=== PATIENT | male | born 1990 | race Caucasian/White ===

== ENCOUNTER 2017-03-11 04:09 | Emergency (ER) | payer OTHER ==
[~2017-03-11] VITALS: Wt 92.0 kg
[2017-03-11] MEDS ORDERED: LIDOCAINE 1% (MDV) 10 ML INJ INJ STA (04:25)
[2017-03-11] MEDS ORDERED: DIPHTH/TET/ACEL PERTUSS (ADULT) 0.5 ML VIAL IM ONE (04:30)
--- NOTE | 2017-03-11 04:50 | ERD ---
ER Documentation Chief Complaint Date/Time DATE: 03/11/17 TIME: 04:48 Chief Complaint Laceration Left arrington at 1230 in the afternoon. injured at work HPI 26-year-old male presents with left arrington laceration that occurred today. Patient accidentally cut himself because the glass fell onto his leg. He is ambulatory. Denies possibility retained foreign body. Pain is mild to moderate he was given, but he came because it would not stop bleeding. Unsure last tetanus vaccination. ROS All systems reviewed and are negative except as per history of present illness. Allergies Allergies: Coded Allergies: No Known Allergy (Unverified , 03/11/17) PMhx/Soc History of Surgery: No Anesthesia Reaction: No Hx Neurological Disorder: No Hx Respiratory Disorders: No Hx Cardiac Disorders: No Hx Psychiatric Problems: No Hx Miscellaneous Medical Probl: No Hx Alcohol Use: No Hx Substance Use: No Hx Tobacco Use: No Smoking Status: Never smoker FmHx Family History: No diabetes Physical Exam Vitals Vital Signs Date Time Temp Pulse Resp B/P Pulse Ox O2 Delivery O2 Flow Rate FiO2 03/11/17 04:11 97.9 77 20 133/86 98 Physical Exam Const: [] Head: Atraumatic Eyes: Normal Conjunctiva ENT: Normal External Ears, Nose and Mouth. Neck: Full range of motion..~ No meningismus. Resp: Clear to auscultation bilaterally Cardio: Regular rate and rhythm, no murmurs Abd: Soft, non tender, non distended. Normal bowel sounds Skin: Left arrington laceration 2 cm in length, linear Results 24 hrs Current Medications Medications (Trade) Dose Ordered Sig/Annalee Route PRN Reason Start Time Stop Time Status Last Admin Dose Admin Diphtheria/ Tetanus/Acell Pertussis (Adacel) 0.5 ml ONCE ONCE IM 03/11/17 04:30 03/11/17 04:31 DC Lidocaine HCl (Lidocaine 1% (Mdv) 10 ml) 10 ml ONCE STAT INJ 03/11/17 04:25 03/11/17 04:26 DC Procedures/MDM The skin edges of the laceration were infiltrated with 1% lidocaine . The laceration was irrigated with copious amounts of normal saline. The wound was prepped with Betadine. On examination under direct light, there was no foreign body seen. The laceration was repaired with simple interrupted sutures. After repair, there was no continuing bleeding on repair and there did not appear to be any complication related to repair. The patient tolerated the procedure well and the wound was appropriately dressed and bandaged. I recommended the patient return in 2 days for a wound check and 7-10 days for removal of sutures. Patient counseled regarding my diagnostic impression and care plan. Prior to discharge all questions answered. Pt agrees with treatment plan and understands strict return precautions. Pt is instructed to follow up with primary care provider within 24-48 hours. Precautionary instructions provided including instructions to return to the ER if not improving or for any worsening or changing symptoms or concerns. Departure Diagnosis: Primary Impression: Laceration Condition: Stable Patient Instructions: Suture Care Additional Instructions: Llame al doctor EMILIANO y angelika myles MARIA INES PARA DENTRO DE 1-2 FIELD.Dgale a la secretaria que nosotros le instruimos hacer esta maria ines.Avise o llame si lee condicin se empeora antes de la maria ines. Regresa aqui si peor o no mejor. SUTURE REMOVAL:CONSULTE A LEE MDICO PARA SACAR LEE PUNTOS.PARA LA RADHA 5-6 d as.EN [facility] 7-10 hwang. JEREMY GOMEZ PA-C Mar 11, 2017 04:50
== END 2017-03-11 05:01 | disposition home or self-care (01) ==
LOC: FTE 04:09
DX: S81.812A Laceration without foreign body, left lower leg, initial encounter (principal); W25.XXXA Contact with sharp glass, initial encounter; Y92.89 Other specified places as the place of occurrence of the external cause; Z23 Encounter for immunization
CPT/HCPCS: 12001; 90471; 90715; Z7502; Z7610

== ENCOUNTER 2018-02-02 03:00 | Emergency (ER) | END 2018-02-02 05:07 | disposition home or self-care (01) ==